=== PATIENT | female | born 1995 | race Caucasian/White ===

== ENCOUNTER 2019-02-12 07:14 | Inpatient (IN) | payer BC, OTHER ==
[2019-02-12] VITALS (28 sets, daily range): BP systolic 96–128; BP diastolic 53–79; PULSE 65–104; TEMP 97.8–98.5
[~2019-02-12] VITALS: Ht 162.6 cm; Wt 90.9 kg
[2019-02-12] MEDS ORDERED: CONCEPT DHA1 CAP PO (07:48)
[2019-02-12 08:31] LABS: BASO % 0.4 % (0.0-2.0); EOS # 0.1 (0.0-0.7); EOS % 0.8 % (0-4.0); GRAN # 6.7 (1.4-6.5); GRAN % 71.3 % (42.2-75.2); HEMOGLOBIN 11.1 g/dl (12.5-16.0); LYMPH % 20.7 % (20.0-51.0); MEAN CELL VOLUME 101 fl (80.0-100.0); MEAN CORPUSCULAR HEMOGLOBIN 31 pg (27.0-31.0); MEAN CORPUSCULAR HGB CONC 30 g/dl (33.0-37.0); MEAN PLATELET VOLUME 10.4 fl (7.4-10.4); MONO # 0.6 (0.1-0.6); MONO % 6.2 % (1.7-9.3); PLATELET COUNT 222 K/mm3 (130-400); RED BLOOD COUNT 3.64 M/mm3 (4.10-5.30); REDCELL DISTRIBUTION WIDTH-CV 13.7 % (11.5-14.5)
[2019-02-12 08:40] LABS: HEMATOCRIT 36.6 % (37.0-47.0)
--- NOTE | 2019-02-12 09:45 | NUR ---
Patient requesting epidural and Shay Jiménez CRNA notified. 1008: Patient off monitor to void. 1012: Patient sits on edge of bed for placement of epidural. Linda NSEED at bedside for procedure and discussing plan of care. FHR difficult to trace due to maternal position. 1027: Test dose given and patient tolerates well. Patient feeling alot of pressure and uncomfortable with contractions. 1030: Patient repositioned and plan of care discussed. 1037: SVE-7-8/[id number]/-1 called and notified. See physician notification.
--- NOTE | 2019-02-12 11:20 | NUR ---
Patient wedged right with left leg resting in stirrup. FHR continues to trace recurrent variable decelerations. 1125: Pitocin off per Dr. Luna orders. Recurrent varibale decelerations continue to trace. 1140: Patient wedged left and right leg resting in stirrup. FHR tracing recurrent variable decelerations.
--- NOTE | 2019-02-12 12:35 | NUR ---
Dr Triana at nurses station and reviewing FHR strip. Orders to turn pitocin back on. Patient sat up with legs lowered. FHR continues to trace recurrent variable decelerations. 1250: Dr. Triana at bedside and assessing patient/FHR strip. SVE per physician /+1. Orders to begin setting patient up for vaginal delivery. Long catheter removed at this time and patient tolerates well. Patient prepped for delivery. 1255: Dr. Triana at bedside and bed taken apart. 1258: Patient begins to push per Dr Trianas orders. 1259: Spontaneous vaginal delivery of head followed by body. Infant to patient abdomen and Kb RN assumes care of . Dr. Triana clamps cord and patients [id number] cuts cord. Cord blood obtained. 1302: Spontaneous vaginal delivery placenta and pitocin bolus started per protocol. Fundal massage done/bleeding WNL/firm. Perineum intact and pericare done. Patient repositioned and ice pack to perineum. Plan of care discussed.
--- NOTE | 2019-02-12 15:20 | NUR ---
Patient sits on edge of bed and epidural catheter removed/patient tolerates well. Juan Pablo Esteves RN at bedside and assists x2 for patient to wheelchair. Patient assisted to toilet, unable to void, pericare done and new gown/pad/undies on. Patient assisted back to wheelchair and to and assisted to bed. Plan of care discussed/white board gone over/oriented to room.
[2019-02-12] MEDS ORDERED: MOTRIN 800800 MG/TAB PO (17:04)
[2019-02-12] MEDS ORDERED: PERCOCET 325 MG1 TA2 PO (17:04)
[2019-02-13 01:00] VITALS: BP 110/60; PULSE 80; TEMP 98
[2019-02-13 07:05] VITALS: BP 121/77; PULSE 70; TEMP 97
--- NOTE | 2019-02-13 11:27 | NUR ---
Initial visit; Patient thanked Digital Marketing Specialist for offering congratulations for the of her daughter. Digital Marketing Specialist thanked mom for choosing [facility].
== END 2019-02-13 15:15 | disposition home or self-care (01) | DRG 807 ==
LOC: OB 07:14 → LDR 07:14 → OB 09:28
PROVIDERS: ADMIT Obstetrics & Gynecology
PROC: 10E0XZZ Delivery of Products of Conception, External Approach (ICD-10-PCS; principal; 2019-02-12)
PROC: 10907ZC Drainage of Amniotic Fluid, Therapeutic from Products of Conception, Via Natural or Artificial Opening (ICD-10-PCS; 2019-02-12)
PROC: 3E033VJ Introduction of Other Hormone into Peripheral Vein, Percutaneous Approach (ICD-10-PCS; 2019-02-12)
DX: O99.52 Diseases of the respiratory system complicating childbirth (principal); Z37.0 Single live birth; J45.909 Unspecified asthma, uncomplicated; O99.62 Diseases of the digestive system complicating childbirth; O69.1XX0 Labor and delivery complicated by cord around neck, with compression, not applicable or unspecified; K21.9 Gastro-esophageal reflux disease without esophagitis; Z3A.39 39 weeks gestation of pregnancy
CPT/HCPCS: J2590; J7120